=== PATIENT | male | born 1980 | race Caucasian/White ===

== ENCOUNTER → 2017-10-12 | Outpatient (CLI) | payer OTHER | END | disposition home or self-care (01) | LOC: RADMRIMAIN 07:37 | PROVIDERS: ATTEND Physician Assistant | DX: Z53.9 Procedure and treatment not carried out, unspecified reason (principal) ==

== ENCOUNTER → 2018-06-06 | Outpatient (CLI) | payer OTHER ==
--- NOTE | 2018-06-06 13:44 | SFUN ---
SLEEP CENTER FOLLOW UP NOTE DATE OF SERVICE: 06/06/2018 A 38-year-old gentleman who has been followed in sleep center for treatment of obstructive sleep apnea-hypopnea syndrome. Patient is on treatment with CPAP every night for the whole night. No problems with the equipment, except recently he saw red face around his machine which showed that there is a leak from his mask. He did not change his mask for about one year. [place] Sleepiness Scale is increased to 12. I checked patient's CPAP unit. CPAP pressure is 15 cm of water. Patient using it every night 30 out of 30 nights for more than 4 hours. Average usage is 7.2 hours. Apnea-hypopnea index only 0.6, which is totally normal, but significant leak 50 L/minute. The patient using full-face mask, this is Simplus from [employer] medium size. MEDICATIONS: None. PHYSICAL EXAMINATION: During physical exam, patient in no distress. VITAL SIGNS: BP 120/68, HR 67, RR around 20, height 5 feet 8-1/2 inches, weight 317.6. Patient significantly increase his weight since previous visit on about 27 pounds. Temperature 97.6, oxygen saturation room air 96%. HEENT: PERRLA, EOMI. Oropharynx extremely low position of soft palate. NECK: Supple, no JVD. Thyroid is not palpable. LUNGS: Clear to percussion and to auscultation. Good air exchange. No wheezing or rhonchi. HEART: S1, S2 regular. No murmurs, gallops, or rubs. ABDOMEN: Obese. EXTREMITIES: No clubbing or cyanosis. MEDICAL MASSAGE THERAPIST: Awake, alert, and oriented X3. Cranial nerves 2 to 7 intact. There is no fasciculation or atrophy. noted. No focal deficits observed. IMPRESSION: 1. Obstructive sleep apnea-hypopnea syndrome on control with CPAP at 15 cm of water. Patient demonstrated 100% compliance with treatment benefitting from treatment. 2. Obesity. 3. Status post vasectomy. PLAN: 1. Patient will continue to use CPAP equipment every night for the whole night. 2. Prescription for all necessary CPAP supplies including patient requests to replace his full face mask as soon as possible. 3. Aggressive losing weight program. 4. No driving if feeling any sleepiness. Sincerely, Ricardo Dunn MD, PhD, FAASM Diplomat of [place] [employer] [place] [employer] Staff Mine Warfare Officer of [facility] [place] MMODL / NATALIYAN: [id number] /
== END | disposition home or self-care (01) ==
LOC: SLEEP 11:06
PROVIDERS: ATTEND Internal Medicine
DX: G47.33 Obstructive sleep apnea (adult) (pediatric) (principal); E66.9 Obesity, unspecified; Z99.89 Dependence on other enabling machines and devices; Z98.52 Vasectomy status

== ENCOUNTER → 2019-07-18 | Outpatient (CLI) | payer OTHER ==
--- NOTE | 2019-07-18 20:13 | PN ---
PROGRESS NOTE DATE OF SERVICE: 07/18/2019 This patient is a 39-year-old gentleman has been followed in Sleep Center for treatment of obstructive sleep apnea-hypopnea syndrome. The patient has continued to use CPAP equipment every night for the whole night without significant problems related to mask fitting, pressure or humidification. No snoring with the machine. He is getting all CPAP supplies on time. [place] Sleepiness Scale today is 6. I checked his CPAP unit. CPAP pressure is 15 cm of water. Usage is 100% of nights for more than 4 hours with average usage 7.4 hours per night. Leak is 20 L/minute, which is acceptable for a full-face mask. Apnea-hypopnea index is only 0.7, which is absolutely normal. MEDICATIONS: None. PHYSICAL EXAMINATION: GENERAL: A pleasant gentleman without distress. VITAL SIGNS: BP 128/77, HR 81, RR 18. Height 5 feet 8 inches, weight 320 pounds. Body mass index 48.6. Oxygen saturation at room air 96%. HEENT: PERRLA, EOMI. Evaluation of oropharynx showed tongue protrudes midline. Extremely low position of soft palate. Mallampati IV. NECK: Supple. No JVD. Thyroid is not palpable. LUNGS: Clear to percussion and to auscultation. Good air exchange. No wheezing or rhonchi. HEART: S1, S2 regular. No murmurs, gallops or rubs. ABDOMEN: Obese. EXTREMITIES: No clubbing or cyanosis. HARPSICHORD MAKER: Awake, alert, and oriented X3. Cranial nerves 2 to 7 intact. There is no fasciculation or atrophy. noted. No focal deficits observed. IMPRESSION: 1. Obstructive sleep apnea-hypopnea syndrome. Patient demonstrated 100% compliance with treatment, benefitting from treatment. 2. Obesity. 3. Status post vasectomy. PLAN: 1. Patient will continue to use CPAP equipment every night for the whole night. 2. I will maintain CPAP prescriptions for Simplus full-face mask, medium size, heated tube (at present the patient is using a regular tube, but it has condensation of water), filters. 3. Losing weight. 4. Sleep hygiene with regular time in bed for at least 7-1/2 to 8 hours. 5. Precautions related to driving. No driving if feeling any sleepiness. 6. Follow-up visit in one year, or earlier if patient has any problems. Sincerely, Ricardo Stefadu, MD, PhD, FAASM Diplomat of [place] [employer] [place] [employer] Medicine Screw Cutter of [facility] [place] MMODL / ELIZABETH: [id number] /
== END | disposition home or self-care (01) ==
LOC: SLEEP 15:41
PROVIDERS: ATTEND Internal Medicine
DX: G47.33 Obstructive sleep apnea (adult) (pediatric) (principal); E66.9 Obesity, unspecified; Z68.42 Body mass index [BMI] 45.0-49.9, adult; Z98.52 Vasectomy status; Z99.89 Dependence on other enabling machines and devices

== ENCOUNTER 2020-01-23 19:36 | Emergency (ER) | payer OTHER ==
[2020-01-23 19:49] VITALS: BP 143/94; PULSE 111; RESP 18; TEMP 98.8
--- NOTE | 2020-01-23 20:14 | ED ---
General Adult HPI - General Chief complaint: Allergic Reaction Stated complaint: rash Time Seen by Provider: 01/23/20 19:40 Source: patient, RN notes reviewed Mode of arrival: ambulatory Limitations: no limitations - History of Present Illness Initial comments: 39-year-old male without any significant past medical history presents to the emergency department for a chief complaint of rash. Patient states he has had a rash on his chest and back since yesterday. States it is very itchy. States he saw urgent care today who gave him a steroid shot. He has been taking equate switches a 24-hour ALLERGY medication. Patient states the hives do not to be going away. Patient denies any swelling of the lips tongue or throat. Denies any new medications or detergents. Denies any new food besides roast beef sandwich meat. Patient has no other complaints at this time including shortness of breath, chest pain, abdominal pain, nausea or vomiting, headache, or visual changes. - Related Data Previous Rx's Medication Instructions Recorded diphenhydrAMINE HCL [Benadryl] 25 mg PO QID PRN #20 tab 01/23/20 predniSONE 50 mg PO DAILY #5 tablet 01/23/20 Allergies Allergy/AdvReac Type Severity Reaction Status Date / Time Penicillins Allergy Rash/Hives Verified 01/23/20 19:49 shellfish derived [Shellfish] Allergy Rash/Hives Verified 01/23/20 19:49 Review of Systems ROS Statement: Those systems with pertinent positive or pertinent negative responses have been documented in the HPI. ROS Other: All systems not noted in ROS Statement are negative. Past Medical History Past Medical History: No Reported History History of Any Multi-Drug Resistant Organisms: None Reported Additional Past Surgical History / Comment(s): vasectomy Past Psychological History: No Psychological Hx Reported Smoking Status: Never smoker Past Alcohol Use History: None Reported Past Drug Use History: None Reported General Exam Limitations: no limitations General appearance: alert, in no apparent distress Head exam: Present: atraumatic, normocephalic, normal inspection Eye exam: Present: normal appearance, PERRL, EOMI. Absent: scleral icterus, conjunctival injection, periorbital swelling ENT exam: Present: normal exam, normal oropharynx (No swelling of the lips tongue or throat, no evidence of angioedema), mucous membranes moist, TM's normal bilaterally, normal external ear exam Neck exam: Present: normal inspection, full ROM. Absent: tenderness, mening ismus, lymphadenopathy Respiratory exam: Present: normal lung sounds bilaterally. Absent: respiratory distress, wheezes, rales, rhonchi, stridor Cardiovascular Exam: Present: regular rate, normal rhythm, normal heart sounds. Absent: systolic murmur, diastolic murmur, rubs, gallop, clicks GI/Abdominal exam: Present: soft, normal bowel sounds. Absent: distended, tenderness, guarding, rebound, rigid Skin exam: Present: urticaria (Raised erythematous lesions consistent with hives noted to the back and chest. Nontender, negative Nikolsky sign. Blanchable) Course Vital Signs 01/23/20 19:47 Temperature 98.8 F Pulse Rate 111 H Respiratory 18 Rate Blood Pressure 143/94 O2 Sat by Pulse 98 Oximetry Medical Decision Making - Medical Decision Making Patient mildly tachycardic upon presentation although is notably anxious. Physical exam reveals findings consistent with urticaria. No evidence for angioedema. No shortness of breath or chest pain. Patient has already received IM injection of steroids today. Patient has taken one a day ALLERGY medication. At this time I discussed taking Benadryl every 6 hours as needed but not driving or operating machinery with this. Patient is driving home so will take this once he gets home. Patient will also be put on oral steroids which she will start tomorrow. Patient does not recall starting any medications or other inciting factors. Discussed cool baths and showers to help with the Hives. discussed following up with his doctor and returning here for any worsening symptoms.I discussed this case with attending Dr. Melo who agrees with this assessment and treatment plan. Disposition Clinical Impression: Acute urticaria Disposition: HOME SELF-CARE Condition: Good Instructions (If sedation given, give patient instructions): Urticaria (ED) Additional Instructions: Please take steroid starting tomorrow as directed. Take Benadryl as directed as well. Prescriptions at [facility] on [address]. Do not take hot showers as this will worsen hives. Follow-up with primary care in 1-2 days. If you have any worsening symptoms such as shortness of breath or swelling of lips tongue or throat return to the emergency department. Prescriptions: diphenhydrAMINE HCL [Benadryl] 25 mg PO QID PRN #20 tab PRN Reason: rash predniSONE 50 mg PO DAILY #5 tablet Is patient prescribed a controlled substance at d/c from ED?: No Referrals: Alex Toure MD [REFERRING] - 1-2 days Time of Disposition: 20:11
== END 2020-01-23 20:30 | disposition home or self-care (01) ==
LOC: EC 19:36
DX: L50.9 Urticaria, unspecified (principal); R00.0 Tachycardia, unspecified; Z88.0 Allergy status to penicillin; Z91.013 Allergy to seafood
CPT/HCPCS: 99282

== ENCOUNTER → 2020-09-17 | Outpatient (CLI) | payer OTHER ==
--- NOTE | 2020-09-17 16:50 | SFUN ---
SLEEP CENTER FOLLOW UP NOTE DATE OF SERVICE: 09/17/2020. A 40-year-old gentleman who has been followed in the Sleep Center for treatment of obstructive sleep apnea-hypopnea syndrome. Patient continued to use his CPAP equipment every night, sometimes has leak from the full-face mask, but usually does not bother him and does not disrupt his sleep. [place] Sleepiness Scale is 9. I checked CPAP unit, CPAP pressure of 15 cm of water. Usage is 30/30 nights for more than 4 hours with average usage 9.3 hours per night. Leak is 35 L/minute. Patient is using a full-face mask. Apnea-hypopnea index is totally normal only 0.5. PHYSICAL EXAM: Patient in no distress, BP 144/89, HR 82, RR 15, height 5,8, weight 343, BMI 52.1, temperature 98.1. Oxygen saturation at room air 97%. OROPHARYNX: Extremely low position of soft palate. Mallampati 4. ABDOMEN: Obese. NECK: Supple, no JVD. Thyroid is not palpable. LUNGS: Clear to percussion and to auscultation. Good air exchange. No wheezing or rhonchi. HEART: S1, S2 regular. No murmurs, gallops, or rubs. EXTREMITIES: No clubbing or cyanosis. FIELD CANE SCALER HELPER: Awake, alert, and oriented X3. Cranial nerves 2 to 7 intact. There is no fasciculation or atrophy. noted. No focal deficits observed. IMPRESSION: 1. Obstructive sleep apnea-hypopnea syndrome. The patient demonstrated 100% compliance. Patient benefitting from treatment, respiration is normal. 2. Slightly high leak from the mask. Patient is using a full-face mask, but does not disrupt his sleep or creates any problem. The patient regularly changes his mask. 3. Obesity. Patient increased his weight on about 23 pounds since previous visit. 4. Status post tonsillectomy. PLAN: 1. Patient will continue to use PAP equipment every night for the whole night. 2. Sleep hygiene with regular time in bed for at least 7-1/2 to 8 hours. 3. Precautions related to driving. No driving if feeling sleepiness. 4. I will maintain all necessary prescription for PAP supplies including mask, tube, filters. 5. Watching weight. 6. No driving if feeling sleepiness. 7. Followup visit in 6 months or earlier if patient has any problems. Thank you very much for allowing me to participate in the management of your patient. Sincerely, Ricardo Dunn MD, PhD, FAASM Diplomat of [place] [employer] Special[employer] [place] [employer] Medicine Estate Planner of [facility] [place] BETH / ELIZABETH: [id number] /
== END | disposition home or self-care (01) ==
LOC: SLEEP 11:02
PROVIDERS: ATTEND Internal Medicine
DX: G47.33 Obstructive sleep apnea (adult) (pediatric) (principal); E66.9 Obesity, unspecified; Z99.89 Dependence on other enabling machines and devices; Z90.89 Acquired absence of other organs

== ENCOUNTER 2020-09-30 10:56 | Observation (INO) | payer OTHER ==
[2020-09-30] MEDS ORDERED: ASPIRIN 81 MG PO STA (11:38)
[2020-09-30] MEDS ORDERED: ACETAMINOPHEN TAB 325 MG TAB PO STA (11:38)
[2020-09-30] MEDS ORDERED: SODIUM CHLORIDE 0.9% 500 ML 500 ML IV STA (11:38)
[2020-09-30 12:18] LABS: Appearance,Urine Clear (Clear); Basophils # (A) 0.1 k/uL (0-0.2); Basophils % (A) 1 %; Bilirubin,Urine Negative (Negative); Blood,Urine Negative (Negative); Color,Urine Yellow; Eosinophils # (A) 0.3 k/uL (0-0.7); Eosinophils % (A) 4 %; Glucose,Urine (UA) Negative (Negative); HCT 47.1 % (39.0-53.0); HGB 15.5 gm/dL (13.0-17.5); Ketones,Urine Negative (Negative); Leukocyte Esterase,Urine Negative (Negative); Lymphocytes # (A) 1.4 k/uL (1.0-4.8); Lymphocytes % (A) 19 %; MCH 29.2 pg (25.0-35.0); MCHC 32.9 g/dL (31.0-37.0); MCV 88.7 fL (80.0-100.0); Mean Platelet Volume 7.2; Monocytes # (A) 0.4 k/uL (0-1.0); Monocytes % (A) 5 %; Neutrophils # (A) 5.4 k/uL (1.3-7.7); Neutrophils % (A) 71 %; Nitrite,Urine Negative (Negative); Platelet Count 224 k/uL (150-450); Protein,Urine Negative (Negative); RBC 5.32 m/uL (4.30-5.90); RDW 13.4 % (11.5-15.5); Specific Gravity,Urine 1.019 (1.001-1.035); Urobilinogen,Urine <2.0 mg/dL (<2.0); WBC 7.6 k/uL (3.8-10.6)
--- NOTE | 2020-09-30 12:23 | XR ---
EXAMINATION TYPE: XR chest 2V DATE OF EXAM: 09/30/2020 COMPARISON: NONE TECHNIQUE: PA and lateral views submitted. HISTORY: Chest pain and shortness of breath FINDINGS: The lungs are clear and there is no pneumothorax, pleural effusion, or focal pneumonia. No overt fa ilure. Biapical pleural thickening. IMPRESSION: 1. No acute process.
--- NOTE | 2020-09-30 12:24 | XR ---
EXAM TYPE: LUMBAR SPINE X RAY SERIES COMPARISON: NONE HISTORY: Pain TECHNIQUE: 4 views are submitted. FINDINGS: Alignment is anatomic. The pedicles are intact. The transverse processes are intact. There is no s pondylolisthesis. Hypertrophic and degenerative changes seen with facet arthropathy at L5-S1. IMPRESSION: 1. Multilevel hypertrophic and degenerative change of the facet arthropathy L5-S1.
[2020-09-30 12:29] LABS: ALT 139 U/L (4-49); AST 85 U/L (17-59); African American GFR (CKD) >90 (>60 ml/min/1.73 sqM); Alkaline Phosphatase 69 U/L (38-126); Anion Gap 7 mmol/L; Blood Urea Nitrogen 14 mg/dL (9-20); Calcium 9.1 mg/dL (8.4-10.2); Carbon Dioxide 25 mmol/L (22-30); Chloride 107 mmol/L (98-107); Glucose 115 mg/dL (74-99); INR 0.9 (<1.2); Non-African American GFR(CKD) >90 (>60 ml/min/1.73 sqM); Partial Thromboplastin Time 22.3 sec (22.0-30.0); Potassium 4.1 mmol/L (3.5-5.1); Prothrombin Time 9.6 sec (9.0-12.0); Sodium 139 mmol/L (137-145); Total Bilirubin 0.4 mg/dL (0.2-1.3); Total Protein 6.5 g/dL (6.3-8.2)
--- NOTE | 2020-09-30 13:15 | US ---
EXAMINATION TYPE: US venous doppler duplex LE RT DATE OF EXAM: 09/30/2020 1:06 PM COMPARISON: NONE CLINICAL HISTORY: RLE pain . SIDE PERFORMED: Right TECHNIQUE: The lower extremity deep venous system is examined utilizing real time linear array sonog gene with graded compression, doppler sonography and color-flow sonography. VESSELS IMAGED: External Iliac Vein (EIV) Common Femoral Vein Deep Femoral Vein Greater Saphenous Vein * Femoral Vein Popliteal Vein Small Saphenous Vein * Proximal Calf Veins (* superficial vessels) Right Leg: Negative for DVT Grayscale, color doppler, spectral doppler imaging performed of the deep veins of the right lower ext remity. There is normal flow, compressibility, vascular waveforms. IMPRESSION: No ultrasound evidence for acute DVT in the right lower extremity.
[2020-09-30] MEDS ORDERED: NITROGLYCERIN SL TABS 0.4 MG TAB SUBLINGUAL PRN (13:57)
--- NOTE | 2020-09-30 13:59 | ED ---
General Adult HPI - General Chief complaint: Chest Pain Stated complaint: back pain Time Seen by Provider: 09/30/20 11:15 Source: patient, RN notes reviewed, old records reviewed Mode of arrival: ambulatory - History of Present Illness Initial comments: 40-year-old male patient presents to ED for evaluation. Patient reports that last night he picked up his child has been having some left paralumbar back pain. Reports that he has chronic back pain. Denies any flank symptoms. 90 paresthesias loss of bowel or bladder control. Patient also reports that the last 2 days he has been having substernal chest pain and chest tightness. He reports that couple days ago while walking at work he also had some chest pain. Denies any prior cardiac history. Denies any other acute complaints. Systemic: Pt denies fatigue, fever/chills, rash. Pt denies weakness, night sweats, weight loss. Neuro: Pt denies headache, visual disturbances, syncope or pre-syncope. HEENT: Pt denies ocular discharge or irritation, otalgia, rhinorrhea, pharyngitis or notable lymphadenopathy. Cardiopulmonary: Pt denies SOB, heart palpitations, dyspnea on exertion. Abdominal/GI: Pt denies abdominal pain, n/v/d. : Pt denies dysuria, burning w/ urination, frequency/urgency. Denies new onset urinary or bowel incontinence. MSK: Pt denies myalgia, loss of strength or function in extremities. Neuro: Pt denies new onset weakness, paresthesias. - Related Data Home Medications Medication Instructions Recorded Confirmed No Known Home Medications 09/30/20 09/30/20 Allergies Allergy/AdvReac Type Severity Reaction Status Date / Time codeine Allergy Unknown Verified 09/30/20 13:19 Penicillins Allergy Rash/Hives Verified 09/30/20 13:19 shellfish derived [Shellfish] Allergy Rash/Hives Verified 09/30/20 13:19 Review of Systems ROS Statement: Those systems with pertinent positive or pertinent negative responses have been documented in the HPI. ROS Other: All systems not noted in ROS Statement are negative. Past Medical History Past Medical History: No Reported History Additional Past Medical History / Comment(s): degenerative disc disease History of Any Multi-Drug Resistant Organisms: None Reported Additional Past Surgical History / Comment(s): vasectomy Past Psychological History: No Psychological Hx Reported Smoking Status: Never smoker Past Alcohol Use History: None Reported Past Drug Use History: None Reported General Exam - General Exam Comments Initial Comments: Constitutional: NAD, AOX3, Pt has pleasant affect. HEENT: NC/AT, trachea midline, neck supple, no lymphadenopathy. External ears appear normal, without discharge. Mucous membranes moist. Eyes PERRLA, EOM intact. There is no scleral icterus. No pallor noted. Cardiopulmonary: RRR, no murmurs, rubs or gallops, no JVD noted. Lungs CTAB in anterior and posterior hernandez. No peripheral edema. Abdominal exam: Abdomen soft and non-distended. Abdomen non-tender to palpation in all 4 quadrants. Bowel sounds active in LLQ. No hepatosplenomegaly. No ecchymosis Neuro: CN II-XII grossly intact. No nuchal rigidity. MSK: Mild tenderness in right mid calf region. No skin changes. No left sided calf tenderness, homans sign negative bilaterally. Posterior tibialis and radial pulse +2 bilaterally. Sensation intact in upper and lower extremities. Full active ROM in upper and lower extremities, 5/5 stregnth. Left paralumbar region mildly tender to palpation. No skin changes. Psoas and quadriceps strength 5/5 strength. Course Vital Signs 09/30/20 11:01 Temperature 97.8 F Pulse Rate 84 Respiratory 18 Rate Blood Pressure 127/77 O2 Sat by Pulse 96 Oximetry Medical Decision Making - Medical Decision Making 40-year-old male patient to ED for evaluation of lumbar back pain as well as chest pain last 2 days. The back pain started after injury. The chest pain started later in the night. Patient vital signs are stable, afebrile. Physical exam displayed some improvable tenderness to the left paralumbar region. No skin changes. Investigations revealed mild transaminitis. Troponin is negative. EKG is nonischemic. Ultrasound negative for DVT. Plain film lumbar spinous with multilevel hypertrophic and degenerative change on the facet arthropathy at L5-S1. Chest x-ray is negative for acute process. Pt is PERC negative. Patient admitted for cardiology evaluation. Case discussed with Dr. Peraza. - Lab Data Result diagrams: 09/30/20 11:51 09/30/20 11:51 Lab Results 09/30/20 09/30/20 09/30/20 Range/Units 11:51 11:51 11:51 WBC 7.6 (3.8-10.6) k/uL RBC 5.32 (4.30-5.90) m/uL Hgb 15.5 (13.0-17.5) gm/dL Hct 47.1 (39.0-53.0) % MCV 88.7 (80.0-100.0) fL MCH 29.2 (25.0-35.0) pg MCHC 32.9 (31.0-37.0) g/dL RDW 13.4 (11.5-15.5) % Plt Count 224 (150-450) k/uL Neutrophils % 71 % Lymphocytes % 19 % Monocytes % 5 % Eosinophils % 4 % Basophils % 1 % Neutrophils # 5.4 (1.3-7.7) k/uL Lymphocytes # 1.4 (1.0-4.8) k/uL Monocytes # 0.4 (0-1.0) k/uL Eosinophils # 0.3 (0-0.7) k/uL Basophils # 0.1 (0-0.2) k/uL PT 9.6 (9.0-12.0) sec INR 0.9 (<1.2) APTT 22.3 (22.0-30.0) sec Sodium (137-145) mmol/L Potassium (3.5-5.1) mmol/L Chloride (98-107) mmol/L Carbon Dioxide (22-30) mmol/L Anion Gap mmol/L BUN (9-20) mg/dL Creatinine (0.66-1.25) mg/dL Est GFR (CKD-EPI)AfAm (>60 ml/min/1.73 sqM) Est GFR (CKD-EPI)NonAf (>60 ml/min/1.73 sqM) Glucose (74-99) mg/dL Calcium (8.4-10.2) mg/dL Magnesium (1.6-2.3) mg/dL Total Bilirubin (0.2-1.3) mg/dL AST (17-59) U/L ALT (4-49) U/L Alkaline Phosphatase (38-126) U/L Troponin I (0.000-0.034) ng/mL NT-Pro-B Natriuret Pep pg/mL Total Protein (6.3-8.2) g/dL Albumin (3.5-5.0) g/dL Urine Color Yellow Urine Appearance Clear (Clear) Urine pH 6.0 (5.0-8.0) Ur Specific [place] 1.019 (1.001-1.035) Urine Protein Negative (Negative) Urine Glucose (UA) Negative (Negative) Urine Ketones Negative (Negative) Urine Blood Negative (Negative) Urine Nitrite Negative (Negative) Urine Bilirubin Negative (Negative) Urine Urobilinogen <2.0 (<2.0) mg/dL Ur Leukocyte Esterase Negative (Negative) 09/30/20 09/30/20 09/30/20 Range/Units 11:51 11:51 11:51 WBC (3.8-10.6) k/uL RBC (4.30-5.90) m/uL Hgb (13.0-17.5) gm/dL Hct (39.0-53.0) % MCV (80.0-100.0) fL MCH (25.0-35.0) pg MCHC (31.0-37.0) g/dL RDW (11.5-15.5) % Plt Count (150-450) k/uL Neutrophils % % Lymphocytes % % Monocytes % % Eosinophils % % Basophils % % Neutrophils # (1.3-7.7) k/uL Lymphocytes # (1.0-4.8) k/uL Monocytes # (0-1.0) k/uL Eosinophils # (0-0.7) k/uL Basophils # (0-0.2) k/uL PT (9.0-12.0) sec INR (<1.2) APTT (22.0-30.0) sec Sodium 139 (137-145) mmol/L Potassium 4.1 (3.5-5.1) mmol/L Chloride 107 (98-107) mmol/L Carbon Dioxide 25 (22-30) mmol/L Anion Gap 7 mmol/L BUN 14 (9-20) mg/dL Creatinine 0.82 (0.66-1.25) mg/dL Est GFR (CKD-EPI)AfAm >90 (>60 ml/min/1.73 sqM) Est GFR (CKD-EPI)NonAf >90 (>60 ml/min/1.73 sqM) Glucose 115 H (74-99) mg/dL Calcium 9.1 (8.4-10.2) mg/dL Magnesium 2.0 (1.6-2.3) mg/dL Total Bilirubin 0.4 (0.2-1.3) mg/dL AST 85 H (17-59) U/L ALT 139 H (4-49) U/L Alkaline Phosphatase 69 (38-126) U/L Troponin I <0.012 (0.000-0.034) ng/mL NT-Pro-B Natriuret Pep 13 pg/mL Total Protein 6.5 (6.3-8.2) g/dL Albumin 4.0 (3.5-5.0) g/dL Urine Color Urine Appearance (Clear) Urine pH (5.0-8.0) Ur Specific [place] (1.001-1.035) Urine Protein (Negative) Urine Glucose (UA) (Negative) Urine Ketones (Negative) Urine Blood (Negative) Urine Nitrite (Negative) Urine Bilirubin (Negative) Urine Urobilinogen (<2.0) mg/dL Ur Leukocyte Esterase (Negative) - EKG Data -: EKG Interpreted by Me (and Dr. Peraza ) EKG Comments: Ventricular rate 83, UT interval 144, QRS 102. QT/QTc 364/427. Normal sinus rhythm, normal EKG, no concern for acute ischemia. Disposition Clinical Impression: Chest pain, Lumbar back pain Disposition: ADMITTED IP TO THIS HOSP Condition: Serious Is patient prescribed a controlled substance at d/c from ED?: No Referrals: None,Stated [Primary Care Provider] - 1-2 days
[2020-09-30] MEDS: MORPHINE SULFATE 4 MG/ML SYRINGE IVP PRN (17:20)
[2020-10-01] MEDS: MORPHINE SULFATE 4 MG/ML SYRINGE IVP PRN (00:05)
[2020-10-01 02:56] LABS: Cholesterol 163 mg/dL (<200); HDL Cholesterol 37 mg/dL (40-60); LDL Cholesterol,Calculated 99 mg/dL (0-99); Triglycerides 134 mg/dL (<150)
[2020-10-01] MEDS ORDERED: INFLUENZA VACCINE (6 MOS+) 60 MCG/0.5 ML SYRINGE IM ONE (06:00)
[2020-10-01] MEDS ORDERED: SODIUM CHLORIDE 0.9% 1,000 ML IV STA (07:53)
[2020-10-01] MEDS ORDERED: HEPARIN SODIUM,PORCINE 5,000 UNIT/ML 1 ML VIAL SQ SCH (08:00)
[2020-10-01] MEDS ORDERED: DOBUTamine DRIP for NUC MED 500 MG in DEXTROSE/WATER 1 250ML.BAG IV ONE (08:00)
[2020-10-01] MEDS ORDERED: SODIUM CHLORIDE 0.9% 1,000 ML IV SCH (08:00)
--- NOTE | 2020-10-01 08:43 | P.HPIM ---
History of Present Illness This is a pleasant 40 years old male with no significant past medical history. His PCP is Dr. Maury Melendez. He presents because of back pain and chest pain, both started about 2 days ago, he had some breathing difficulty and then with a central chest pain is rated about 6-8/10 however currently is improving down to 2-3/10. Nonspecific in character and felt like something sitting on his chest. No dyspnea currently, no nausea vomiting or sweating or dizziness. No palpitation. Also patient has been complaining of from back pain about 2 years ago however over the last few days he is was getting more severe amount at times he feels some weakness in his legs but currently denies any weakness or numbness in the lower extremity, no urine or bowel incontinence. He denies a smoking, alcohol or illicit tracts Patient has stable vitals. Labs are unremarkable except for mildly elevated liver enzymes with AST of 85 and ALT 139, CBC, BMP, liver test, urinalysis are unremarkable. Troponins 3 are negative with less than 0.012. EKG showing normal sinus rhythm at 83 [address]PM with no significant ST-T changes. Ultrasound of the right lower extremity showing no evidence of DVT. Chest x-ray: No acute process Lumbar x-rays showing multilevel hypertrophic and degenerative changes from facet arthropathy L5-S1 In the emergency room patient received Tylenol, aspirin 325 mg and 500 mL of normal saline boluses Review of Systems CONSTITUTIONAL: No fever, no malaise, no fatigue. HEENT: No recent visual problems or hearing problems. Denied any sore throat. CARDIOVASCULAR: No orthopnea, PND, no palpitations, no syncope. PULMONARY: No shortness of breath, no cough, no hemoptysis. GASTROINTESTINAL: No diarrhea, no nausea, no vomiting, no abdominal pain. Normoactive bowel sounds. NEUROLOGICAL: No headaches, no weakness, no numbness. HEMATOLOGICAL: Denies any bleeding or petechiae. GENITOURINARY: Denies any burning micturition, frequency, or urgency. MUSCULOSKELETAL/RHEUMATOLOGICAL: Denies any joint pain, swelling, or any muscle pain. ENDOCRINE: Denies any polyuria or polydipsia. Past Medical History Past Medical History: No Reported History Additional Past Medical History / Comment(s): degenerative disc disease History of Any Multi-Drug Resistant Organisms: None Reported Additional Past Surgical History / Comment(s): vasectomy Past Anesthesia/Blood Transfusion Reactions: No Reported Reaction Past Psychological History: No Psychological Hx Reported Smoking Status: Never smoker Past Alcohol Use History: None Reported Past Drug Use History: None Reported Medications and Allergies Home Medications Medication Instructions Recorded Confirmed Type No Known Home Medications 09/30/20 09/30/20 History Allergies Allergy/AdvReac Type Severity Reaction Status Date / Time codeine Allergy Unknown Verified 09/30/20 13:19 Penicillins Allergy Rash/Hives Verified 09/30/20 13:19 shellfish derived [Shellfish] Allergy Rash/Hives Verified 09/30/20 13:19 Physical Exam Vitals: Vital Signs Temp Pulse Pulse Resp BP BP Pulse Ox 10/01/20 03:55 97.6 F 79 17 113/73 97 09/30/20 20:00 98.1 F 81 18 136/81 96 09/30/20 16:26 97.8 F 75 18 144/90 09/30/20 15:52 97.8 F 75 18 144/90 97 09/30/20 14:10 98.7 F 90 18 126/83 98 09/30/20 11:01 97.8 F 84 18 127/77 96 Intake and Output 09/30/20 10/01/20 10/01/20 22:59 06:59 14:59 Other: Voiding Method Toilet Toilet # Voids 2 Weight 155.582 kg -GENERAL: The patient is alert and oriented x3, not in any acute distress. Morbid obesity HEENT: Pupils are round and equally reacting to light. EOMI. No scleral icterus. No conjunctival pallor. Normocephalic, atraumatic. No pharyngeal erythema. No thyromegaly. CARDIOVASCULAR: S1 and S2 present. No murmurs, rubs, or gallops. PULMONARY: Chest is clear to auscultation, no wheezing or crackles. ABDOMEN: Soft, nontender, nondistended, normoactive bowel sounds. No palpable organomegaly. MUSCULOSKELETAL: No joint swelling or deformity. EXTREMITIES: No cyanosis, clubbing, or pedal edema. NEUROLOGICAL: Gross neurological examination did not reveal any focal deficits. SKIN: No rashes. No petechiae Results CBC & Chem 7: 09/30/20 11:51 09/30/20 11:51 Labs: Abnormal Lab Results - Last 24 Hours (Table) 09/30/20 09/30/20 Range/Units 11:51 11:51 Glucose 115 H (74-99) mg/dL AST 85 H (17-59) U/L ALT 139 H (4-49) U/L HDL Cholesterol 37 L (40-60) mg/dL Thrombosis Risk Factor Assmnt - Choose All That Apply Any of the Below Risk Factors Present?: Yes Each Factor Represents 1 point: Obesity (BMI >25) Other Risk Factors: No Other congenital or acquired thrombophilia - If yes, enter type in comment: No Thrombosis Risk Factor Assessment Total Risk Factor Score: 1 Thrombosis Risk Factor Assessment Level: Low Risk Assessment and Plan Assessment: Chest pain, rule out cardiac causes Acute and chronic low back pain Mildly elevated liver enzymes Sleep apnea on CPAP Morbid obesity Plan: The patient is a pleasant 40 years old male is as with chest pain and some back pain. I will continue with serial troponins, cardiology consult. Continue with aspirin, check echocardiogram. Also I will consult orthopedic spine team. We will check hepatitis panel and liver ultrasound in view of his chest pain with elevated liver enzymes Labs and medication were reviewed.. Continue same treatment. Continue with symptomatic treatment. Resume home medication. Monitor lytes and vitals. DVT and GI prophylaxis. Further recommendations depends on the clinical course of the patient DVT prophylaxis: Subcutaneous heparin GI Prophylaxis: Pepcid PT/OT: Pending Prognosis is guarded
[2020-10-01] MEDS ORDERED: ASPIRIN 81 MG PO SCH (09:00)
[2020-10-01] MEDS ORDERED: ASPIRIN 325 MG TAB PO SCH (09:00)
--- NOTE | 2020-10-01 09:27 | US ---
EXAMINATION TYPE: US liver DATE OF EXAM: 10/01/2020 COMPARISON: NONE CLINICAL HISTORY: Elevated liver enzymes, chest pain. . abnormal labs EXAM MEASUREMENTS: Liver Length: 20.5 cm Gallbladder Wall: 0.2 cm CBD: 0.4 cm Right Kidney: 12.5 x 5.7 x 6.1 cm Suboptimal/limited visualization due to overlying bowel gas and patient body habitus Pancreas: Echogenic Liver: Increased attenuation, decreased visualization of vessels suggestive of fatty infiltrate. En larged in size. Coarse. Echogenic. Gallbladder: wnl Evidence for sonographic Prado's sign: neg CBD: Limited visualization Right Kidney: No hydronephrosis or masses seen IMPRESSION: Exam somewhat limited. Correlate for hepatic steatosis.
--- NOTE | 2020-10-01 09:50 | P.CRDCN ---
History of Present Illness History of present illness: HISTORY OF PRESENTING ILLNESS This is a pleasant 40-year-old male past medical history significant for sleep apnea and morbid obesity, BMI 52. 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 We have been asked to see in consultation for chest pain. He states 2 days ago he picked up his grandchild and injured his back. He was having significant low back pain all day. Later in the evening he was laying down for bed when he noticed a heavy pressure in the chest in the mid-sternal region. There was no radiation of the pain or associated symptoms. He went to sleep and slept through the night. When he woke up yesterday the pain was still there prompting him to come in for further evaluation. He is seen and examined sitting up in bed in no acute distress. DIAGNOSTICS EKG reveals sinus mechanism with no acute changes. Chest xray negative for an acute process. Laboratory reviewed, CBC unremarkable, sodium 139, potassium 4.1, creatinine 0.82, AST 85, ALT 139, cardiac enzymes negative x3, NTproBNP 13, HDL 37. LDL 99. He takes no daily cardiac medications. REVIEW OF SYSTEMS At the time of my exam: CONSTITUTIONAL: Denies fever or chills. CARDIOVASCULAR: Denies chest pain, shortness of breath, orthopnea, PND or pa lpitations. RESPIRATORY: Denies cough. GASTROINTESTINAL: Denies abdominal pain, diarrhea, constipation, nausea or vomiting. MUSCULOSKELETAL: Complains of low back pain. NEUROLOGIC: Denies numbness, tingling or weakness. ENDOCRINE: Denies fatigue, weight change, polydipsia or polyurina. GENITOURINARY: Denies burning, hematuria or urgency with micturation. HEMATOLOGIC: Denies history of anemia or bleeding. PHYSICAL EXAMINATION Blood pressure 139/83 heart rate 82 afebrile and maintaining oxygen saturation on room air. CONSTITUTIONAL: No apparent distress. Morbid obestiry HEENT: Head is normocephalic. Pupils are equal, round. Sclerae anicteric. Mucous membranes of the mouth are moist. No JVD. No carotid bruit. CHEST EXAMINATION: Lungs are clear to auscultation. No chest wall tenderness is noted on palpation or with deep breathing. HEART EXAMINATION: Regular rate and rhythm. S1, S2 heard. No murmurs, gallops or rub. ABDOMEN: Soft, nontender. Positive bowel sounds. EXTREMITIES: 2+ peripheral pulses, no lower extremity edema and no calf tenderness. NEUROLOGIC EXAMINATION: Patient is awake, alert and oriented x3. ASSESSMENT Chest pain, atypical. An acute event has been ruled out. Acute on chronic lumbar back pain Obstructive sleep apnea, uses CPAP regularly at home Morbid obesity, BMI 52 PLAN An acute coronary event has been ruled out. We will order a dobutamine stress echocardiogram to assess for stress induced ishcemia. 2D echo has been ordered and will be reviewed. Decrease aspirin to 81 mg daily. Recommend diet and exercise for weight loss. If stress test is normal he can be discharged from a cardiac perspective. Thank you kindly for this consultation. Nurse Practitioner note has been reviewed, I agree with a documented findings and plan of care. Patient was seen and examined. Past Medical History Past Medical History: No Reported History Additional Past Medical History / Comment(s): degenerative disc disease History of Any Multi-Drug Resistant Organisms: None Reported Additional Past Surgical History / Comment(s): vasectomy Past Anesthesia/Blood Transfusion Reactions: No Reported Reaction Past Psychological History: No Psychological Hx Reported Smoking Status: Never smoker Past Alcohol Use History: None Reported Past Drug Use History: None Reported Medications and Allergies Home Medications Medication Instructions Recorded Confirmed Type No Known Home Medications 09/30/20 09/30/20 History Allergies Allergy/AdvReac Type Severity Reaction Status Date / Time codeine Allergy Unknown Verified 09/30/20 13:19 Penicillins Allergy Rash/Hives Verified 09/30/20 13:19 shellfish derived [Shellfish] Allergy Rash/Hives Verified 09/30/20 13:19 Physical Exam Vitals: Vital Signs Temp Pulse Pulse Resp BP BP Pulse Ox 10/01/20 08:24 97.9 F 82 18 139/83 96 10/01/20 03:55 97.6 F 79 17 113/73 97 09/30/20 20:00 98.1 F 81 18 136/81 96 09/30/20 16:26 97.8 F 75 18 144/90 09/30/20 15:52 97.8 F 75 18 144/90 97 09/30/20 14:10 98.7 F 90 18 126/83 98 09/30/20 11:01 97.8 F 84 18 127/77 96 Intake and Output 09/30/20 10/01/20 10/01/20 22:59 06:59 14:59 Other: Voiding Method Toilet Toilet # Voids 2 Weight 155.582 kg Results 09/30/20 11:51 09/30/20 11:51 Cardiac Enzymes 09/30/20 09/30/20 09/30/20 Range/Units 11:51 11:51 14:57 AST 85 H (17-59) U/L Troponin I <0.012 <0.012 (0.000-0.034) ng/mL 09/30/20 Range/Units 17:58 AST (17-59) U/L Troponin I <0.012 (0.000-0.034) ng/mL Coagulation 09/30/20 Range/Units 11:51 PT 9.6 (9.0-12.0) sec APTT 22.3 (22.0-30.0) sec Lipids 09/30/20 Range/Units 11:51 Triglycerides 134 (<150) mg/dL Cholesterol 163 (<200) mg/dL HDL Cholesterol 37 L (40-60) mg/dL CBC 09/30/20 Range/Units 11:51 WBC 7.6 (3.8-10.6) k/uL RBC 5.32 (4.30-5.90) m/uL Hgb 15.5 (13.0-17.5) gm/dL Hct 47.1 (39.0-53.0) % Plt Count 224 (150-450) k/uL Comprehensive Metabolic Panel 09/30/20 Range/Units 11:51 Sodium 139 (137-145) mmol/L Potassium 4.1 (3.5-5.1) mmol/L Chloride 107 (98-107) mmol/L Carbon Dioxide 25 (22-30) mmol/L BUN 14 (9-20) mg/dL Creatinine 0.82 (0.66-1.25) mg/dL Glucose 115 H (74-99) mg/dL Calcium 9.1 (8.4-10.2) mg/dL AST 85 H (17-59) U/L ALT 139 H (4-49) U/L Alkaline Phosphatase 69 (38-126) U/L Total Protein 6.5 (6.3-8.2) g/dL Albumin 4.0 (3.5-5.0) g/dL Current Medications Generic Name Dose Route Start Last Admin Trade Name Freq PRN Reason Stop Dose Admin Aspirin 81 mg 10/01/20 09:00 10/01/20 08:29 Aspirin 81 Mg PO 81 mg DAILY LOVE Administration Heparin Sodium (Porcine) 5,000 unit 10/01/20 08:00 10/01/20 08:20 Heparin Sodium,Porcine 5,000 Unit/Ml 1 Ml Vial SQ 5,000 unit Q8HR LOVE Administration Dobutamine HCl/Dextrose 500 mg 250 mls @ 46.675 mls/hr 10/01/20 08:00 / IV Solution IV 10/01/20 13:21 .Q5H22M ONE Protocol 10 MCG/KG/MIN Sodium Chloride 1,000 mls @ 100 mls/hr 10/01/20 07:53 10/01/20 08:20 Saline 0.9% IV 10/01/20 17:52 100 mls/hr .Q10H STA Administration Sodium Chloride 1,000 mls @ 100 mls/hr 10/01/20 08:00 10/01/20 08:23 Saline 0.9% IV Not Given .Q10H LOVE Morphine Sulfate 4 mg 09/30/20 14:17 10/01/20 00:05 Morphine Sulfate 4 Mg/Ml Syringe IVP 4 mg Q6HR PRN Administration Pain Nitroglycerin 0.4 mg 09/30/20 13:57 Nitroglycerin Sl Tabs 0.4 Mg Tab SUBLINGUAL Q5M PRN Chest Pain Intake and Output 09/30/20 10/01/20 10/01/20 22:59 06:59 14:59 Other: Voiding Method Toilet Toilet # Voids 2 Weight 155.582 kg 09/30/20 11:51 09/30/20 11:51
--- NOTE | 2020-10-01 10:00 | ECHOF ---
Referral Reason:chest pain MEASUREMENTS -------- HEIGHT: 172.7 cm WEIGHT: 155.6 kg BP: 127/77 RVIDd: 3.5 cm (< 3.3) IVSd: 2.0 cm (0.6 - 1.1) LVIDd: 4.5 cm (3.9 - 5.3) LVPWd: 2.0 cm (0.6 - 1.1) IVSs: 2.0 cm LVIDs: 3.0 cm LVPWs: 2.2 cm LAESV Index (A-L): 19.12 ml/m Ao Diam: 3.3 cm (2.0 - 3.7) AV Cusp: 2.3 cm (1.5 - 2.6) MV EXCURSION: 17.354 mm (> 18.000) MV EF SLOPE: 94 mm/s (70 - 150) EPSS: 0.3 cm MV E Vishal: 1.04 m/s MV DecT: 116 ms MV A Vishal: 0.58 m/s MV E/A Ratio: 1.79 RAP: 5.00 mmHg RVSP: 11.51 mmHg FINDINGS -------- Sinus rhythm. This was a technically difficult study with suboptimal apical views. The left ventricular size is normal. There is severe concentric left ventricular hypertrophy. Ove rall left ventricular systolic function is normal with, an EF between 55 - 60 %. The diastolic fill ing pattern is normal for the age of the patient {E/E'}. The right ventricle is mildly enlarged. Normal LA size by volume 22+/-6 ml/m2. The right atrial size is normal. 5.0mg of Lumason was utilized for enhancement of images Interatrial and interventricular septum intact. The aortic valve is trileaflet and appears structurally normal. There is no evidence of aortic regu rgitation. There is no evidence of aortic stenosis. No mitral regurgitation. Mild tricuspid regurgitation present. There is no evidence of pulmonary hypertension. The right v entricular systolic pressure, as measured by Doppler, is 11.51mmHg. There is no pulmonic regurgitation present. The aortic root size is normal. IVC Not well visulized. There is no pericardial effusion. CONCLUSIONS -------- 1. The left ventricular size is normal. 2. There is severe concentric left ventricular hypertrophy. 3. Overall left ventricular systolic function is normal with, an EF between 55 - 60 %. 4. The right ventricle is mildly enlarged. 5. Mild tricuspid regurgitation present. 6. There is no evidence of pulmonary hypertension. 7. The right ventricular systolic pressure, as measured by Doppler, is 11.51mmHg. SEARCH ENGINE MARKETING SPECIALIST: Genet Forrester RDCS
--- NOTE | 2020-10-01 10:10 | P.PN ---
Progress Note - Text Progress Note Date: 10/01/20 I attempted to see the patient at bedside today but he is getting further cardiac testing currently. I was able to discuss the case with staff and nursing. Apparently patient has chronic low back pain as well as morbid obesity. He has not had specific changes at his lower back recently. He is not having any neurologic deficit in his lower extremities. X-rays of his lumbar spine reviewed. He has well maintained disc height. There is some small ossific spurring diffusely in his mid lumbar spine. There is no obvious instability there is no fracture. Chronic low back pain Chest pain Morbid obesity Mild disc degeneration at lumbar spine The patient has chronic low back pain without acute neurologic deficit. His x- rays appear to be stable. It is okay for him to mobilize from a spine standpoint. I do not have acute surgical plans for him at this point or plans for further imaging in house. If he is having worsening may need further imaging and possible evaluation with pain management.
[2020-10-01] MEDS ORDERED: ONDANSETRON 4 MG/2 ML VIAL ONE (10:15)
[2020-10-01] MEDS ORDERED: METOPROLOL TARTRATE 5 MG/5 ML VIAL IVP ONE (10:15)
[2020-10-01] MEDS ORDERED: ATROPINE SULFATE 0.1 MG/ML 10ML SYRINGE ONE (10:15)
--- NOTE | 2020-10-01 11:32 | ECHOS ---
STRESS ECHOCARDIOGRAM INDICATIONS: Chest pain. MEDICATIONS: None. BASELINE HEART RATE: 81 BASELINE BLOOD PRESSURE: 135/78 MAXIMUM HEART RATE: 163 MAXIMUM BLOOD PRESSURE: 208/36 85% MPHR: 151 100% MPHR: 178 MAXIMUM STAGE REACHED: 4 TOTAL EXERCISE TIME: 13:15 CLINICAL INFORMATION: Baseline EKG revealed normal sinus rhythm without significant ST changes. There was some baseline artifact. With dobutamine administration as per protocol, heart rate went up to 160 beats per minute. Patient had some nausea, vomiting with the dobutamine administration and also atropine administration. EKG was unremarkable for any ischemic changes. There was no significant arrhythmia. By EKG criteria, this is unremarkable dobutamine stress test. Baseline echo images revealed normal wall motion and wall thickening of all segments. With dobutamine administration as per protocol, there was progressive increase in contractility noted involving all segments suggesting that there is no evidence of any stress induced ischemia. Patient developed some hypotension after the dobutamine administration was stopped. He also received some beta alexandr. However, he stabilized and was asymptomatic at the time of leaving the noninvasive laboratory. This is a normal dobutamine stress echo without evidence of ischemia. MMODL / IJN: [id number] /
[2020-10-01 14:40] LABS: Hepatitis A Antibody IgM Non-Reactive (Non-Reactive); Hepatitis B Core IgM Non-Reactive (Non-Reactive); Hepatitis B Surface Antigen Non-Reactive (Non-Reactive); Hepatitis C IgG Antibody Non-Reactive (Non-Reactive)
[2020-10-01 15:31] VITALS: BP 134/75; PULSE 73; RESP 16; TEMP 98.1
== END 2020-10-01 16:39 | disposition home or self-care (01) ==
LOC: EC 10:56 → 3NCARDOBS 13:57
PROVIDERS: ADMIT Hospitalist; ATTEND Hospitalist
DX: R07.89 Other chest pain (principal); E66.01 Morbid (severe) obesity due to excess calories; G47.33 Obstructive sleep apnea (adult) (pediatric); G89.29 Other chronic pain; K76.0 Fatty (change of) liver, not elsewhere classified; M47.9 Spondylosis, unspecified; M51.36 Other intervertebral disc degeneration, lumbar region; Z68.43 Body mass index [BMI] 50.0-59.9, adult
CPT/HCPCS: 93005 ×2; 96372; 96374; 96376; 99285; 36415; 83880; 80061; 80053; 80074; 83735; 84484; 85025; 85610; 85730; 81003; 72100; 71046; 93971; 76705; 90686; G0378 ×2; C8929; C8930; G0008; J1250; J2270 ×2; J1644; J2405; J0461; Q9950 ×2; 93306; 93351

== ENCOUNTER → 2023-02-13 | Outpatient (CLI) | payer OTHER ==
--- NOTE | 2023-02-13 22:15 | MR ---
EXAMINATION TYPE: MR lumbar spine wo con DATE OF EXAM: 02/13/2023 6:49 PM COMPARISON: None CLINICAL INDICATION:Male, 42 years old with history of M54.50 LOW BACK PAIN; Low back pain TECHNIQUE: Multi planar, multi sequence imaging was performed utilizing: T1-weighted, T2-weighted, a nd turbo inversion recovery imaging of the lumbar spine. IV Contrast: None. FINDINGS: Alignment: The lumbar vertebral bodies have preserved heights and alignment. Cord: The conus medullaris and the distal spinal cord appear unremarkable with regards to their signa l intensity and morphology. Bones/Discs: Bone signal is within normal limits. No abnormal bony edema on inversion recovery sequen star. Multilevel degenerative disc disease is noted and most pronounced at the L2-L5 mild osteophyte f ormation. Intervertebral disc signal is maintained. 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 T12-L1: No evidence of significant spinal canal stenosis or neural foraminal stenosis. L1-L2: No evidence of significant spinal canal stenosis or neural foraminal stenosis. L2-L3: No evidence of significant spinal canal stenosis or neural foraminal stenosis. L3-L4: No evidence of significant spinal canal stenosis. Facet joint arthropathy mild to moderate harrison ateral neural foraminal stenosis. L4-L5: Disc bulge and facet joint arthropathy result in mild spinal canal and moderate bilateral neur al foraminal stenosis. L5-S1: Right extraforaminal a disc protrusion which appears to abut the exiting right L5-S1 nerve. Th ere is moderate bilateral neural foraminal stenosis. The spinal canal is patent. Other findings: None. IMPRESSION: 1. L5-S1 right extraforaminal disc herniation appears to abut the exiting nerve. 2. 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
== END | disposition home or self-care (01) ==
LOC: RADMRIMAIN 17:31
PROVIDERS: ATTEND Family Medicine
DX: M51.37 Other intervertebral disc degeneration, lumbosacral region (principal); M47.816 Spondylosis without myelopathy or radiculopathy, lumbar region; M99.73 Connective tissue and disc stenosis of intervertebral foramina of lumbar region
CPT/HCPCS: 72148

== ENCOUNTER → 2024-08-06 | Outpatient (CLI) | payer OTHER ==
--- NOTE | 2024-08-06 09:42 | MR ---
EXAMINATION TYPE: MR lumbar spine wo con DATE OF EXAM: 08/06/2024 COMPARISON: Lumbar spine 02/13/2023 HISTORY: Low back pain x 4 years, Emmanuel lower extremity pain TECHNIQUE: Multiplanar, multisequence images of the lumbar spine were acquired without IV contrast. FINDINGS: The lumbar vertebral bodies do have preserved heights and alignment. No disc desiccation i dentified. Multilevel anterior osteophytosis. No STIR signal abnormality identified. The conus medull ann and the distal spinal cord do appear unremarkable with regards to their signal intensity and mor phology. Spinal canal is congenitally small again caliber from L2 to L5. L1-L2: No significant disc pathology is identified. The spinal canal and neural foramen are patent. L2-L3: No significant disc pathology is identified. The spinal canal and neural foramen are patent. L3-L4: No significant disc pathology is identified. The spinal canal and neural foramen are patent. L4-L5: A disc bulge is identified with facet joint arthropathy results in mild spinal canal stenosis . Moderate bilateral neural foraminal stenosis redemonstrated. L5-S1: Redemonstration of right extraforaminal disc protrusion which appears to abut the exiting rig ht L5-S1 nerve. No significant central canal stenosis. Bilateral facet arthropathy resulting in moder ate bilateral neural foraminal stenosis with right greater than left. Other significant findings: None. IMPRESSION: Overall stable examination with right L5-S1 extra foraminal disc herniation which appears to abut the exiting nerve. Mild spinal canal stenosis at L4-L5 secondary to disc bulge and facet arthropathy. L4 -L5 and L5-S1 facet arthropathy resulting in moderate bilateral neural foraminal stenosis. Congenital ly small-caliber the spinal canal from L2 to L5 redemonstrated.
== END | disposition home or self-care (01) ==
LOC: RADMRIMAIN 05:52
PROVIDERS: ATTEND Family Medicine
DX: M51.36 Other intervertebral disc degeneration, lumbar region
CPT/HCPCS: 72148